=== PATIENT | male | born 1955 | race Caucasian/White ===

== ENCOUNTER 2017-04-05 18:57 | Emergency (ER) | payer OTHER ==
[~2017-04-05] VITALS: Ht 185.4 cm; Wt 79.9 kg
[~2017-04-05 18:57] MED LIST: ALPR1TAB6 PO; ASPI-515 PO; CARV3.122 PO; CLOP75TA PO; FENT1PAT77 TD; PARO20TA4 PO; ZOLP5TAB6 PO
[2017-04-05 20:36] LABS: HEMATOCRIT 44.5 % (39.2-51.8); HEMOGLOBIN 14.6 g/dL (13.7-18.0); WHITE BLOOD COUNT 9.3 x10^3/uL (3.4-10)
[2017-04-05 20:42] LABS: ASPARTATE AMINO TRANSFERASE 18 U/L (15-37); BLOOD UREA NITROGEN 21 mg/dL (7-18)
[2017-04-05] MEDS ORDERED: HYDROmorphone 1 MG/ML, 1ML ONE (21:46)
[2017-04-05] MEDS: HYDROmorphone 1 MG/ML, 1ML IM ONE ×2 (21:50→21:53)
[2017-04-05 23:11] VITALS: BP 115/64
== END 2017-04-05 23:15 | disposition home or self-care (01) ==
LOC: ED 20:32
DX: M79.602 Pain in left arm (principal); G89.29 Other chronic pain; F17.200 Nicotine dependence, unspecified, uncomplicated; F41.9 Anxiety disorder, unspecified; I10 Essential (primary) hypertension; I25.2 Old myocardial infarction; Z86.73 Personal history of transient ischemic attack (TIA), and cerebral infarction without residual deficits
CPT/HCPCS: 36415; 80053; 81003; 85025; 99284; J1170

== ENCOUNTER 2017-10-28 17:45 | Emergency (ER) | payer MEDICARE, OTHER ==
[~2017-10-28] VITALS: Ht 185.4 cm; Wt 82.0 kg
[2017-10-28 18:18] VITALS: BP 134/70
[2017-10-28] MEDS ORDERED: NORT50CA PO (18:39)
== END 2017-10-28 20:42 | disposition home or self-care (01) ==
LOC: ED 20:08
DX: Z00.8 Encounter for other general examination (principal); I10 Essential (primary) hypertension; I25.10 Atherosclerotic heart disease of native coronary artery without angina pectoris; Z86.73 Personal history of transient ischemic attack (TIA), and cerebral infarction without residual deficits; I25.2 Old myocardial infarction; W19.XXXA Unspecified fall, initial encounter; Y93.89 Activity, other specified; Y92.89 Other specified places as the place of occurrence of the external cause; Y99.8 Other external cause status
CPT/HCPCS: 99283